=== PATIENT | female | born 1975 | race Hispanic/Latino ===

== ENCOUNTER 2017-08-27 00:13 | Emergency (ER) | payer OTHER, SELFPAY ==
[2017-08-27] MEDS ORDERED: TETRACAINE HCL 0.5% 2ML OPTH ONE (00:30)
[2017-08-27] MEDS ORDERED: FLUORESCEIN SODIUM 0.6 MG/WRAP ONE (00:31)
[2017-08-27] MEDS ORDERED: NA CHLORIDE 0.9% 2,000 ML ONE (00:35)
--- NOTE | 2017-08-27 01:34 | ER ---
Nurse's Notes [facility] Name: Paula Crockett Age: 42 yrs Sex: Female : 1975 Arrival Date: 08/27/2017 Time: 00:15 Bed 30 Private MD: Diagnosis: Ocular pain, right eye Presentation: 08/27 00:18 Presenting complaint: Patient states: " I was putting eye lashes and the blue thing got ao stock into my eye. Transition of care: patient was not received from another setting of care. Onset of symptoms was August 27, 2017 at 00:00. Initial Sepsis Screen: Does the patient meet any 2 criteria? No. Patient's initial sepsis screen is negative. Does the patient have a suspected source of infection? No. Patient's initial sepsis screen is negative. Care prior to arrival: None. 00:18 Method Of Arrival: Ambulatory ao 00:18 Acuity: LATRICIA 4 ao Triage Assessment: 00:30 General: Appears uncomfortable. rk2 00:30 General: Appears well groomed, well developed, well nourished, Behavior is calm, rk2 cooperative. Pain: Complains of pain in right eye. EENT: Eyes are tearing on iris of right eye Reports pain. Neuro: Level of Consciousness is alert, obeys commands, Oriented to person, place, time, situation. Respiratory: Airway is patent Respiratory effort is even, unlabored, Respiratory pattern is regular, symmetrical, agonal apnea. Derm: Skin is pink, warm \\T\\ dry. 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 - Social history:: Smoking status: Patient/guardian denies using tobacco, Patient uses alcohol, occasionally. Patient/guardian denies using street drugs. - Family history:: not pertinent. Screenin:30 Abuse screen: Denies threats or abuse. rk2 00:30 Nutritional screening: No deficits noted. Tuberculosis screening: No symptoms or risk rk2 factors identified. Fall Risk None identified. Assessment: 00:45 Reassessment: Irrigation of right eye with Jaylon lens, 2 liters of NS. Pt. tolerating rk2 well after tetracaine. 01:20 Reassessment: Eye irrigation completed... pt. resting in room with family \\T\\ bedside. rk2 Pt. appears to be in no distress; however, still has discomfort to right eye. Vital Signs: 00:19 BP 158 / 104; Pulse 81; Resp 14; Temp 99.4; Pulse Ox 98% on R/A; Weight 81.65 kg (R); ao Height 5 ft. 3 in. (160.02 cm) (R); Pain 4/10; 01:44 BP 169 / 93; Pulse 79; Resp 16; Pulse Ox 99% on R/A; rk2 00:19 Body Mass Index 31.89 (81.65 kg, 160.02 cm) ao ED Course: 00:15 Patient arrived in ED. ds1 00:19 Triage completed. ao 00:22 Patient has correct armband on for positive identification. Bed in low position. Call rk2 light in reach. 00:23 Arm band placed on right wrist. Patient placed in an exam room, on a stretcher, on ao pulse oximetry, Patient notified of wait time. 00:28 Mary العراقي RN is Primary Nurse. rk2 00:29 Ronnie Gaona MD is Attending Physician. ma2 01:45 No provider procedures requiring assistance completed. Patient did not have IV access rk2 during this emergency room visit. Administered Medications: No medications were administered Outcome: 01:33 Discharge ordered by . ma2 01:46 Discharged to home ambulatory. rk2 01:46 Condition: good 01:46 Discharge instructions given to patient, Prescriptions given X 1. 01:46 Patient left the ED. rk2 Signatures: Erkia López ds1 Keyon Bates RN RN ao Ronnie Gaona MD MD ma2 Mary العراقي RN RN rk2
--- NOTE | 2017-08-27 01:34 | EDPHYS ---
Physician Documentation [facility] Name: Paula Crockett Age: 42 yrs Sex: Female : 1975 Arrival Date: 08/27/2017 Time: 00:15 Bed 30 Private MD: ED Physician Ronnie Gaona HPI: 08/27 00:36 This 42 yrs old Female presents to ER via Ambulatory with complaints of ma2 Foreign Body In Eye. 00:36 The patient sustained drop of glue fell inside eye while trying to put lashes , caused ma2 by glue. Onset: The symptoms/episode began/occurred suddenly, 1 hour(s) ago. Duration: the symptoms are continuous. Associated signs and symptoms: Pertinent negatives: None. chills, dizziness, ear ache, fever, headache. Severity of symptoms: At their worst the symptoms were mild in the emergency department the symptoms have improved. 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 - Social history:: Smoking status: Patient/guardian denies using tobacco, Patient uses alcohol, occasionally. Patient/guardian denies using street drugs. - Family history:: not pertinent. ROS: 00:36 Eyes: Positive for foreign body sensation, Negative for acute changes, blurry vision, ma2 discharge, icterus, injury or acute deformity, itching, pain, photophobia, swelling, tearing, vision loss. 00:36 All other systems are negative. 01:35 Constitutional: Negative for fever, chills, and weight loss. ma2 Exam: 00:36 Visual Acuity: Visual acuity is within normal limits. ma2 00:36 Neck: Trachea midline, no thyromegaly or masses palpated, and no cervical lymphadenopathy. Supple, full range of motion without nuchal rigidity, or vertebral point tenderness. No Meningismus. Chest/axilla: Normal chest wall appearance and motion. Nontender with no deformity. No lesions are appreciated. Cardiovascular: Regular rate and rhythm with a normal S1 and S2. No gallops, murmurs, or rubs. Normal PMI, no JVD. No pulse deficits. Respiratory: Lungs have equal breath sounds bilaterally, clear to auscultation and percussion. No rales, rhonchi or wheezes noted. No increased work of breathing, no retractions or nasal flaring. 00:36 Eyes: Periorbital structures: appear normal, Extraocular movements: intact throughout, Conjunctiva: normal, Corneas: are normal, Sclera: no appreciated abnormality, Lids and lashes: appear normal, Examination of the other eye reveals no obvious gross abnormality, a slit lamp exam was employed for the exam, Intraocular pressure: Vital Signs: 00:19 BP 158 / 104; Pulse 81; Resp 14; Temp 99.4; Pulse Ox 98% on R/A; Weight 81.65 kg (R); ao Height 5 ft. 3 in. (160.02 cm) (R); Pain 4/10; 01:44 BP 169 / 93; Pulse 79; Resp 16; Pulse Ox 99% on R/A; rk2 00:19 Body Mass Index 31.89 (81.65 kg, 160.02 cm) ao MDM: 00:29 Patient medically screened. ma2 00:36 Differential diagnosis: Corneal abrasion of Corneal ulcer of Foreign body in ma2 01:31 Data reviewed: vital signs, nurses notes, old medical records, lab test result(s). ny2 Counseling: I had a detailed discussion with the patient and/or guardian regarding: the historical points, exam findings, and any diagnostic results supporting the discharge/admit diagnosis, the presence of at least one elevated blood pressure reading (>120/80) during this emergency department visit, the need for outpatient follow up. Response to treatment: the patient's symptoms have resolved after treatment, eye irrigated with glen lens, no foreign body seen on wood lamp . Administered Medications: No medications were administered Disposition: 08/27/17 01:33 Discharged to Home. Impression: Ocular pain, right eye. - Condition is Stable. - Prescriptions for Natural Tears (PF) - Apply to affected area 2 drop by OPHTHALMIC route 6 times per day for 8-10 days; 1 Container. - Medication Reconciliation Form, Thank You Letter, Antibiotic Education, Prescription Opioid Use form. - Follow up: Private Physician; When: Tomorrow; Reason: Continuance of care. - Problem is new. - Symptoms have improved. - Notes: see an eye doctor for eye exam in 2 days Signatures: Keyon Bates, RN RN Ronnie Johnson MD MD ma2 Mary العراقي RN RN rk2 Corrections: (The following items were deleted from the chart) 01:46 01:33 08/27/2017 01:33 Discharged to Home. Impression: Ocular pain, right eye. rk2 Condition is Stable. Forms are Medication Reconciliation Form, Thank You Letter, Antibiotic Education, Prescription Opioid Use. Follow up: Private Physician; When: Tomorrow; Reason: Continuance of care. Problem is new. Symptoms have improved. ma2
== END 2017-08-27 01:46 | disposition home or self-care (01) ==
LOC: ER 00:13
DX: H57.11 Ocular pain, right eye (principal); I10 Essential (primary) hypertension
CPT/HCPCS: 99283; J7030

== ENCOUNTER 2018-06-11 08:16 | Day surgery (SDC) | payer OTHER ==
--- OUTSIDE RECORDS SUMMARY | 2018-06-11 08:18 | XMS REPORT ---
:1975 [facility] Address [address] [place] [address] Dr. Hanson [address] [place] [id number] Care Team Providers Name Role Phone Unavailable Unavailable Unavailable Problems This patient has no known problems. Allergies, Adverse Reactions, Alerts This patient has no known allergies or adverse reactions. Medications This patient has no known medications.
--- OUTSIDE RECORDS SUMMARY | 2018-06-11 08:19 | XMS REPORT ---
:1975 Author Organization [employer] Care Team Providers Name Role Phone Guicho Estrada Provider Role Unavailable Allergies No Known Allergies Problems Problem Type Condition Code Onset Dates Condition Status Problem Constipation, unspecified K59.00 Active constipation type Problem Microalbuminuria R80.9 Active Problem Diverticulitis K57.92 Active Problem Uncontrolled diabetes mellitus type E11.65 Active 2 without complications, unspecified whether regulatory internship insulin use Problem HTN, goal below 130/80 I10 Active Problem Mixed hyperlipidemia E78.2 Active Problem Nonalcoholic fatty liver disease K76.0 Active Medications No Known Medications Results No Known Results Summary Purpose [employer] Submission
--- OUTSIDE RECORDS SUMMARY | 2018-06-11 08:19 | XMS REPORT ---
:1975 Author Organization [employer] Care Team Providers Name Role Phone SalcidoHong Provider Role Unavailable Allergies No Known Allergies Problems Problem Type Condition Code Onset Dates Condition Status Problem Mixed hyperlipidemia E78.2 Active Problem Nonalcoholic fatty liver disease K76.0 Active Problem Microalbuminuria R80.9 Active Problem Uncontrolled diabetes mellitus type E11.65 Active 2 without complications, unspecified whether penitentiary insulin use Problem HTN, goal below 130/80 I10 Active Medications No Known Medications Results No Known Results Summary Purpose [employer] Submission
--- OUTSIDE RECORDS SUMMARY | 2018-06-11 08:19 | XMS REPORT ---
:1975 Author Organization [employer] Care Team Providers Name Role Phone SalcidoHong Provider Role Unavailable Allergies No Known Allergies Problems Problem Type Condition Code Onset Dates Condition Status Problem Mixed hyperlipidemia E78.2 Active Problem Nonalcoholic fatty liver disease K76.0 Active Problem Microalbuminuria R80.9 Active Problem Uncontrolled diabetes mellitus type E11.65 Active 2 without complications, unspecified whether halfway insulin use Problem HTN, goal below 130/80 I10 Active Medications No Known Medications Results No Known Results Summary Purpose [employer] Submission
--- OUTSIDE RECORDS SUMMARY | 2018-06-11 08:19 | XMS REPORT ---
:1975 Author Organization [employer] Care Team Providers Name Role Phone SalcidoHong Provider Role Unavailable Allergies No Known Allergies Problems Problem Type Condition Code Onset Dates Condition Status Problem Mixed hyperlipidemia E78.2 Active Problem Nonalcoholic fatty liver disease K76.0 Active Problem Microalbuminuria R80.9 Active Problem Uncontrolled diabetes mellitus type E11.65 Active 2 without complications, unspecified whether senior living insulin use Problem HTN, goal below 130/80 I10 Active Medications No Known Medications Results No Known Results Summary Purpose [employer] Submission
--- OUTSIDE RECORDS SUMMARY | 2018-06-11 08:19 | XMS REPORT ---
:1975 Author Organization [employer] Care Team Providers Name Role Phone Omari Hong Provider Role Unavailable Allergies, Adverse Reactions, Alerts Substance Reaction Event Type N.K.D.A. 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 terminal insulin use Problem Uncontrolled diabetes mellitus type E11.65 Active 2 without complications, unspecified whether laborer marine terminal insulin use Problem HTN, goal below 130/80 I10 Active Medications Medication Code Code Instructions Start End Status Dosage System Date Date Zestoretic [facility] 94749873110 10-12.5 MG Nov 29, Active 1 tablet Orally Once a 2018 day Simvastatin NDC 74101547866 10 MG Orally Nov 29, Active 1 tablet Once a day 2018 in the evening Metformin HCl ND 18467251646 1000 MG Orally Nov 29, Active 1 tablet BID 2018 with a meal Results No Known Results Summary Purpose [employer] Submission
--- OUTSIDE RECORDS SUMMARY | 2018-06-11 08:19 | XMS REPORT ---
:1975 [facility] Team Providers Name Role Phone Omari Hong Provider Role Unavailable Allergies, Adverse Reactions, Alerts Substance Reaction Event Type N.K.D.A. Info Not Available Non Drug Allergy Problems Problem Type Condition Code Onset Dates Condition Status Assessment Constipation, unspecified K59.00 Active constipation type Assessment Uncontrolled diabetes mellitus type E11.65 Active 2 without complications, unspecified whether terminal clerk insulin use Assessment Left upper quadrant abdominal pain R10.12 Active of unknown etiology Assessment Microalbuminuria R80.9 Active Assessment Nonalcoholic fatty liver disease K76.0 Active Assessment Mixed hyperlipidemia E78.2 Active Assessment HTN, goal below 130/80 I10 Active Problem Microalbuminuria R80.9 Active Problem Mixed hyperlipidemia E78.2 Active Problem Constipation, unspecified K59.00 Active constipation type Problem HTN, goal below 130/80 I10 Active Problem Nonalcoholic fatty liver disease K76.0 Active Problem Uncontrolled diabetes mellitus type E11.65 Active 2 without complications, unspecified whether terminal clerk insulin use Medications Medication Code Code Instructions Start End Date Status Dosage System Date Luciazess [facility] 75657204890 290 mcg by mouth Mar 27June Active 1 capsule once daily at 2017 bedtime as needed Amitiza [facility] 78128865132 24 MCG Orally Mar 26July Active 1 capsule Twice a day 2017 with food Zestoretic [facility] 89596373536 10-12.5 MG Active 1 tablet Orally Once a day Tradjenta [facility] 25465710842 5 MG Orally Once Active 1 tablet a day Metformin HCl [facility] 91718731813 500 MG Orally Active 1 tablet twice a day with a meal Zestoretic [facility] 53855802678 10-12.5 MG Active 1 tablet Orally Once a day Simvastatin ND 64888420676 10 MG Orally Active 1 tablet Once a day in the evening Simvastatin [facility] 08921902767 10 MG Orally Active 1 tablet Once a day in the evening Tradjenta [facility] 80240364212 5 MG Orally Once Active 1 tablet a day Results No Known Results Summary Purpose [employer] Submission
--- OUTSIDE RECORDS SUMMARY | 2018-06-11 08:19 | XMS REPORT ---
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 Assessment Constipation, unspecified K59.00 Active constipation type Problem Microalbuminuria R80.9 Active Problem Mixed hyperlipidemia E78.2 Active Problem Constipation, unspecified K59.00 Active constipation type Problem HTN, goal below 130/80 I10 Active Problem Nonalcoholic fatty liver disease K76.0 Active Problem Uncontrolled diabetes mellitus type E11.65 Active 2 without complications, unspecified whether prison insulin use Medications Medication Code Code Instructions Start End Date Status Dosage System Date Metformin HCl [facility] 27234621732 500 MG Orally Active 1 tablet twice a day with a meal Zestoretic [facility] 89887061834 10-12.5 MG Active 1 tablet Orally Once a day Januvia ND 78333389656 100 MG Orally Inactive 1 tablet Once a day Tradjenta ND 13303585722 5 MG Orally Feb 26, Active 1 tablet Once a day 2017 Simvastatin ND 77410986145 10 MG Orally Active 1 tablet Once a day in the evening Amitiza [facility] 43545812804 24 MCG Orally Mar 26July Active 1 capsule Twice a day 2017 with food Results No Known Results Summary Purpose [employer] Submission
--- OUTSIDE RECORDS SUMMARY | 2018-06-11 08:19 | XMS REPORT ---
:1975 Author Organization [employer] Care Team Providers Name Role Phone SalcidoHong Provider Role Unavailable Allergies No Known Allergies Problems Problem Type Condition Code Onset Dates Condition Status Problem Mixed hyperlipidemia E78.2 Active Problem Nonalcoholic fatty liver disease K76.0 Active Problem Microalbuminuria R80.9 Active Problem Uncontrolled diabetes mellitus type E11.65 Active 2 without complications, unspecified whether jail insulin use Problem HTN, goal below 130/80 I10 Active Medications No Known Medications Results No Known Results Summary Purpose [employer] Submission
--- OUTSIDE RECORDS SUMMARY | 2018-06-11 08:19 | XMS REPORT ---
:1975 Author Organization [employer] Care Team Providers Name Role Phone Hong Salcido Provider Role Unavailable Allergies, Adverse Reactions, Alerts Substance Reaction Event Type N.K.D.A. Info Not Available Non Drug Allergy Problems Problem Type Condition Code Onset Dates Condition Status Assessment Acute cystitis without hematuria N30.00 Active Assessment Mixed hyperlipidemia E78.2 Active Assessment Nonalcoholic fatty liver disease K76.0 Active Problem Nonalcoholic fatty liver disease K76.0 Active Problem Uncontrolled diabetes mellitus type E11.65 Active 2 without complications, unspecified whether fdc insulin use Problem Mixed hyperlipidemia E78.2 Active Assessment Uncontrolled diabetes mellitus type E11.65 Active 2 without complications, unspecified whether fdc insulin use Assessment HTN, goal below 130/80 I10 Active Problem HTN, goal below 130/80 I10 Active Medications Medication Code Code Instructions Start End Status Dosage System Date Date Nitrofurantoin [facility] 42113500283 100 MG Orally November 08October Active 1 capsule Monohyd Macro every 12 hrs 2017, with food 2017 Results No Known Results Summary Purpose [employer] Submission
--- OUTSIDE RECORDS SUMMARY | 2018-06-11 08:19 | XMS REPORT ---
:1975 Author Organization [employer] Care Team Providers Name Role Phone SalcidoHong Provider Role Unavailable Allergies No Known Allergies Problems Problem Type Condition Code Onset Dates Condition Status Problem Mixed hyperlipidemia E78.2 Active Problem Nonalcoholic fatty liver disease K76.0 Active Problem Microalbuminuria R80.9 Active Problem Uncontrolled diabetes mellitus type E11.65 Active 2 without complications, unspecified whether care home insulin use Problem HTN, goal below 130/80 I10 Active Medications No Known Medications Results No Known Results Summary Purpose [employer] Submission
--- OUTSIDE RECORDS SUMMARY | 2018-06-11 08:19 | XMS REPORT ---
:1975 Author Organization [employer] Care Team Providers Name Role Phone SalcidoGuyh Provider Role Unavailable Allergies No Known Allergies Problems Problem Type Condition Code Onset Dates Condition Status Problem Microalbuminuria R80.9 Active Problem Mixed hyperlipidemia E78.2 Active Problem Constipation, unspecified K59.00 Active constipation type Problem HTN, goal below 130/80 I10 Active Problem Nonalcoholic fatty liver disease K76.0 Active Problem Uncontrolled diabetes mellitus type E11.65 Active 2 without complications, unspecified whether senior living insulin use Medications Medication Code System Code Instructions Start End Date Status Dosage Date Rachel [facility] 40477395561 290 mcg by mouth Mar 27June 25, Active 1 capsule once daily at 2017 2018 bedtime as needed Results No Known Results Summary Purpose [employer] Submission
--- OUTSIDE RECORDS SUMMARY | 2018-06-11 08:19 | XMS REPORT ---
:1975 Author Organization [employer] Care Team Providers Name Role Phone Hong Salcido Provider Role Unavailable Allergies No Known Allergies Problems Problem Type Condition Code Onset Dates Condition Status Problem Microalbuminuria R80.9 Active Problem Mixed hyperlipidemia E78.2 Active Problem Constipation, unspecified K59.00 Active constipation type Problem HTN, goal below 130/80 I10 Active Problem Nonalcoholic fatty liver disease K76.0 Active Problem Uncontrolled diabetes mellitus type E11.65 Active 2 without complications, unspecified whether senior living insulin use Medications No Known Medications Results No Known Results Summary Purpose [employer] Submission
[2018-06-11 08:42] LABS: Specific Gravity 1.025 (1.005-1.030)
[2018-06-11] MEDS ORDERED: Ringers Lactate 1,000 ML IV ONE (08:46)
[2018-06-11] MEDS ORDERED: PROPOFOL 200 MG/20 ML VIAL IV ONE ×2 (08:53)
[2018-06-11] MEDS ORDERED: LIDOCAINE 1% MPF 5 ML VIAL ONE ×2 (08:53)
--- NOTE | 2018-06-11 09:40 | ENDO RPT ---
[address], [address] COLONOSCOPY PROCEDURE REPORT EXAM DATE: 06/11/2018 PATIENT NAME: Paula Crockett MR #: [id number] BIRTHDATE: 1975 ATTENDING: Guicho Estrada DR STATUS: outpatient MARKETING SPECIALIST: Sophie Jansen RN, Christal Harrington RN, Ela Carranza, and Aime Carranza INDICATIONS: The patient is a 43 yr old Female here for a colonoscopy due to abdominal pain PROCEDURE PERFORMED: Colonoscopy with biopsy MEDICATIONS: Per Anesthesia. ESTIMATED BLOOD LOSS: None CONSENT: The patient understands the risks and benefits of the procedure and understands that these risks include, but are not limited to: sedation, allergic reaction, infection, perforation and/or bleeding. Alternative means of evaluation and treatment include, among others: physical exam, x-rays, and/or surgical intervention. The patient elects to proceed with this endoscopic procedure. DESCRIPTION OF PROCEDURE: During intra-op preparation period all mechanical medical equipment was checked for proper function. Hand hygiene and appropriate measures for infection prevention was taken. Procedure, possible complications, alternatives including, but not limited to possibility of bleeding, perforation, tear, infection, sepsis, need for surgery, need for blood transfusion, were explained to the patient. After the risks, benefits and alternatives of the procedure were thoroughly explained, Informed consent was verified, confirmed and timeout was successfully executed by the treatment team. The patient was placed in the left lateral position. A digital rectal exam was performed and revealed internal hemorrhoids. After appropriate level of anesthesia, the scope was passed. The EC-[id number] ([id number]) endoscope was introduced through the anus and advanced to the cecum, which was identified by both the appendix and ileocecal valve. The quality of the prep was poor. The instrument was then slowly withdrawn as the colon was fully examined. Scope withdrawal time was 10 minutes. COLON FINDINGS: A small smooth flat polyp with a mucous cap was found in the rectum. A polypectomy was performed with cold forceps. The resection was complete, the polyp tissue was completely retrieved and sent to histology. The colon mucosa was otherwise normal. Multiple random biopsies were performed. Retroflexed views revealed no abnormalities. The scope was then completely withdrawn from the patient and the procedure terminated. ADVERSE EVENTS: There were no complications. IMPRESSIONS: 1. Small flat polyp was found in the rectum; polypectomy was performed with cold forceps 2. The colon mucosa was otherwise normal; multiple random biopsies were performed RECOMMENDATIONS: 1. avoid NSAIDS for 2 weeks 2. fiber rich diet 3. await biopsy results 4. CT scan 5. hemorrhoidal hygiene 6. increase dietary water RECALL: for Colonoscopy, pending biopsy results. Guicho Estrada DR eSigned: Guicho Estrada DR 06/11/2018 9:40 AM cc: CPT CODES: ICD9 CODES: PATIENT NAME: Paula Crockett MR#: [id number]
== END 2018-06-11 10:15 | disposition home or self-care (01) ==
LOC: OR 08:16
PROVIDERS: ATTEND Surgery
PROC: 0DBL8ZX Excision of Transverse Colon, Via Natural or Artificial Opening Endoscopic, Diagnostic (ICD-10-PCS; 2018-06-11)
PROC: 0DBN8ZX Excision of Sigmoid Colon, Via Natural or Artificial Opening Endoscopic, Diagnostic (ICD-10-PCS; 2018-06-11)
PROC: 0DBP8ZX Excision of Rectum, Via Natural or Artificial Opening Endoscopic, Diagnostic (ICD-10-PCS; principal; 2018-06-11 09:15)
DX: R10.12 Left upper quadrant pain (principal); K62.1 Rectal polyp; K64.8 Other hemorrhoids; E11.9 Type 2 diabetes mellitus without complications; I10 Essential (primary) hypertension; E78.2 Mixed hyperlipidemia; Z80.3 Family history of malignant neoplasm of breast; Z83.3 Family history of diabetes mellitus; Z82.49 Family history of ischemic heart disease and other diseases of the circulatory system
CPT/HCPCS: 81025; 82962; 88305; J2704

== ENCOUNTER 2021-01-16 00:08 | Emergency (ER) | payer OTHER ==
[2021-01-16 00:51] LABS: Absolute Lymphocytes (CBC) 1.3 K/uL (0.7-4.9); Basophils % 0.9 % (0-1.3); Hematocrit 41.6 % (36.0-45.0); Lymphocytes % 17.9 % (15.3-44.8); MPV 8.2 fL (7.6-11.3); RBC Red Blood Cell Count 4.51 M/uL (3.86-4.86)
[2021-01-16 00:55] LABS: Protime INR 0.91
[2021-01-16] MEDS ORDERED: ONDANSETRON 4 MG/2 ML VIAL ONE (01:02)
[2021-01-16] MEDS ORDERED: NA CHLORIDE 0.9% 1,000 ML ONE (01:02)
[2021-01-16] MEDS ORDERED: FAMOTIDINE 20 MG/2 ML VIAL IV ONE (01:02)
[2021-01-16 01:22] LABS: ALT/SGPT 43 U/L (12-78); AST/SGOT 18 U/L (15-37); Albumin 3.9 g/dL (3.4-5.0); Alkaline Phosphatase 68 U/L (45-117); BUN Blood Urea Nitrogen 12 mg/dL (7-18); Bicarbonate 24 mmol/L (21-32); Bilirubin Direct < 0.1 mg/dL (0-0.2); Bilirubin Total 0.2 mg/dL (0.2-1.0); Glucose Level 201 mg/dL (74-106); Potassium 3.7 mmol/L (3.5-5.1); Protein, Total 7.9 g/dL (6.4-8.2); Sodium Level 139 mmol/L (136-145)
[2021-01-16 02:07] LABS: Urine Blood Negative (Negative); Urine Glucose 2+ (Negative); Urine Protein Negative (Negative)
[2021-01-16 02:26] LABS: Barbiturates NEGATIVE (NEGATIVE); Benzodiazepines NEGATIVE (NEGATIVE); Cocaine NEGATIVE (NEGATIVE); METHAMPHETAM NEGATIVE (NEGATIVE); Methadone NEGATIVE (NEGATIVE); Opiates NEGATIVE (NEGATIVE); Phencyclidine NEGATIVE (NEGATIVE); THC Cannibis NEGATIVE (NEGATIVE)
--- NOTE | 2021-01-16 02:52 | EDPHYS ---
Physician Documentation [facility] Name: Paula Crockett Age: 45 yrs Sex: Female : 1975 Arrival Date: 01/16/2021 Time: 00:22 Bed 20 Private MD: ED Physician Jorden Woodward HPI: 01/16 00:30 This 45 yrs old Female presents to ER via EMS with complaints of Alcohol cp Intoxication. 00:30 He was brought to the emergency department by EMS for reported bizarre behavior. cp Patient admits to consuming alcohol since about 5 this afternoon and being under increased stress. Patient is alert, calm and no complaints at this time. Historical: - Allergies: 00:29 No Known Allergies; sj1 - PMHx: 00:29 Diabetes - NIDDM; Hypertension; sj1 - Immunization history:: Client reports having NOT received the Covid vaccine. - Social history:: Smoking status: Patient denies any tobacco usage or history of. Patient uses alcohol, only on a social basis. ROS: 00:35 Constitutional: Negative for fever, poor PO intake. cp 00:35 Eyes: Negative for injury, pain, redness, and discharge. cp 00:35 Cardiovascular: Negative for chest pain. 00:35 Respiratory: Negative for cough, shortness of breath. 00:35 Abdomen/GI: Negative for abdominal pain, diarrhea, constipation, active vomiting. 00:35 Neuro: Negative for altered mental status, headache, seizure activity, syncope, weakness. 00:35 Psych: Negative for auditory hallucinations, visual hallucinations, homicidal ideation, suicide gesture, suicidal ideation. 00:35 All other systems are negative. Exam: 00:45 Constitutional: The patient appears in no acute distress, alert, awake, cp non-diaphoretic, non-toxic, well developed, well nourished. 00:45 Head/Face: Normocephalic, atraumatic. cp 00:45 Eyes: Periorbital structures: appear normal, Pupils: equal, round, and reactive to light and accomodation, Conjunctiva: normal, no exudate, no injection, Sclera: no appreciated abnormality, Lids and lashes: appear normal, bilaterally. 00:45 ENT: External ear(s): are unremarkable, Nose: is normal, Mouth: Lips: moist, Oral mucosa: moist, Posterior pharynx: Airway: no evidence of obstruction, patent. 00:45 Neck: ROM/movement: is normal, is supple, without pain, no range of motions limitations. 00:45 Chest/axilla: Inspection: normal, Palpation: is normal, no crepitus, no tenderness. 00:45 Cardiovascular: Rate: normal, Rhythm: regular. 00:45 Respiratory: the patient does not display signs of respiratory distress, Respirations: normal, no use of accessory muscles, no retractions, labored breathing, is not present, Breath sounds: are clear throughout, no decreased breath sounds, no stridor, no wheezing. 00:45 Abdomen/GI: Inspection: abdomen appears normal, Palpation: abdomen is soft and non-tender, in all quadrants. 00:45 Neuro: Orientation: to person, place \T\ time. Mentation: able to follow commands, Motor: moves all fours, strength is normal. 00:45 Psych: Behavior/mood is cooperative, Affect is calm, Patient has no thoughts/intents to harm self or others. Judgement / Insight is impaired. 00:55 ECG was reviewed by the Attending Physician. cp Vital Signs: 00:23 BP 115 / 76 LA Sitting (auto/reg); Pulse 70; Resp 16 S; Temp 97.0(O); Pulse Ox 94% on sj1 R/A; Weight 81.65 kg (R); Height 5 ft. 4 in. (162.56 cm) (R); Pain 0/10; 02:54 BP 108 / 70 LA Sitting (auto/reg); Pulse 70; Resp 13 S; Temp 97.6(O); Pulse Ox 94% on sj1 R/A; Pain 0/10; 00:23 Body Mass Index 30.90 (81.65 kg, 162.56 cm) sj1 MDM: 00:41 Patient medically screened. cp 02:50 Data reviewed: vital signs, nurses notes, lab test result(s), EKG, and as a result, I cp will discharge patient. 02:50 Differential diagnosis: drug withdrawal. acute psychotic break, depression, psychosis cp secondary to non-compliance. Counseling: I had a detailed discussion with the patient and/or guardian regarding: the historical points, exam findings, and any diagnostic results supporting the discharge/admit diagnosis, lab results, to return to the emergency department if symptoms worsen or persist or if there are any questions or concerns that arise at home. ED course: VSS. Daughter in room with patient and will continue to monitor at home. 01/16 00:24 Order name: Acetaminophen cp 01/16 00:24 Order name: Basic Metabolic Panel; Complete Time: 02:07 cp 01/16 02:07 Interpretation: Normal except: GLUC 201. cp 01/16 00:24 Order name: CBC with Diff; Complete Time: 02:07 cp 01/16 02:07 Interpretation: Normal except: ROB% 75.3. cp 01/16 00:24 Order name: ETOH Level; Complete Time: 02:07 cp 01/16 02:07 Interpretation: Abnormal: ETOH 181. cp 01/16 00:24 Order name: Hepatic Function; Complete Time: 02:07 cp 01/16 02:08 Interpretation: Normal except: GLOB 4.0; A/G 1.0. cp 01/16 00:24 Order name: PT-INR; Complete Time: 02:07 cp 01/16 00:24 Order name: Ptt, Activated; Complete Time: 02:07 cp 01/16 00:24 Order name: Salicylate; Complete Time: 02:07 cp 01/16 00:24 Order name: Urine Drug Screen; Complete Time: 02:50 cp 01/16 00:24 Order name: Acetaminophen Level; Complete Time: 02:07 EDMS 01/16 02:06 Order name: Urine Dipstick-Ancillary; Complete Time: 02:50 EDMS 01/16 00:24 Order name: EKG; Complete Time: 00:25 cp 01/16 00:24 Order name: EKG - Nurse/Tech; Complete Time: 00:44 cp 01/16 00:24 Order name: IV Saline Lock; Complete Time: 00:37 cp 01/16 00:24 Order name: Labs collected and sent; Complete Time: 00:37 cp 01/16 00:24 Order name: Urine Dipstick-Ancillary (obtain specimen); Complete Time: 02:56 cp EC:55 Rate is 69 beats/min. Rhythm is regular. NM interval is normal. QRS interval is normal. cp QT interval is normal. T waves are Inverted in leads III, aVR. Interpreted by me. Reviewed by me. Administered Medications: 00:44 Drug: NS 0.9% 1000 ml Route: IV; Rate: 1 bolus; Site: left antecubital; sj1 01:19 Follow up: IV Intake: 1000ml sj1 00:44 Drug: Zofran (Ondansetron) 4 mg Route: IVP; Site: left antecubital; sj1 01:17 Follow up: Response: No adverse reaction sj1 00:44 Drug: Pepcid (famotidine) 20 mg Route: IVP; Site: left antecubital; sj1 01:17 Follow up: Response: No adverse reaction sj1 Disposition: 07:01 Co-signature as Attending Physician, Jorden Woodward MD. [email or web address] Disposition Summary: 01/16/21 02:51 Discharge Ordered Location: Home cp Problem: new cp Symptoms: have improved cp Condition: Stable cp Diagnosis - Alcohol use, unspecified with intoxication cp Followup: cp - With: Private Physician - When: 1 - 2 days - Reason: Worsening of condition Discharge Instructions: - Discharge Summary Sheet cp - Alcohol Intoxication cp Forms: - Medication Reconciliation Form cp - Thank You Letter cp - Antibiotic Education cp - Prescription Opioid Use cp Signatures: Dispatcher [employer] EDMS Bruno Quiroz PA PA cp Jorden Woodward MD MD [email or web address] Carmen Garcia RN RN sj1 Corrections: (The following items were deleted from the chart) 02:56 00:24 Suicide Screening ([place]) ordered. cp sj1 16:26 16:25 This 45 yrs old Female presents to ER via EMS with complaints of Alcohol cp Intoxication. cp
--- NOTE | 2021-01-16 02:52 | ER ---
Nurse's Notes [facility] Name: Paula Crockett Age: 45 yrs Sex: Female : 1975 Arrival Date: 01/16/2021 Time: 00:22 Bed 20 Private MD: Diagnosis: Alcohol use, unspecified with intoxication Presentation: 01/16 00:23 Chief complaint: EMS states: brought in by EMS from [facility] for bizarre behavior. sj1 Per EMS pt was sleep, unarousable on scene. Pt awake, alert, and oriented upon arrival. States she have been under a lot of stress. Unknown amount of drinks tonight. BS 205 en route. c/o nausea. denies pain. GCS 15. Hx of HTN, DM. Coronavirus screen: Vaccine status: Patient reports being unvaccinated. Ebola Screen: Patient negative for fever greater than or equal to 101.5 degrees Fahrenheit, and additional compatible Ebola Virus Disease symptoms Patient denies exposure to infectious person. Patient denies travel to an Ebola-affected area in the 21 days before illness onset. Initial Sepsis Screen: Does the patient meet any 2 criteria? No. Patient's initial sepsis screen is negative. Does the patient have a suspected source of infection? No. Patient's initial sepsis screen is negative. Risk Assessment: Do you want to hurt yourself or someone else? Patient reports no desire to harm self or others. Onset of symptoms was January 16, 2021. 00:23 Method Of Arrival: EMS sj1 00:23 Acuity: LATRICIA 3 sj1 Triage Assessment: 00:29 General: Appears in no apparent distress. Behavior is calm, cooperative, Smells of sj1 alcohol. Pain: Denies pain. EENT: No deficits noted. Neuro: No deficits noted. Cardiovascular: No deficits noted. Respiratory: No deficits noted. GI: No deficits noted. : No deficits noted. Derm: No deficits noted. Musculoskeletal: No deficits noted. Historical: - Allergies: 00:29 No Known Allergies; sj1 - PMHx: 00:29 Diabetes - NIDDM; Hypertension; sj1 - Immunization history:: Client reports having NOT received the Covid vaccine. - Social history:: Smoking status: Patient denies any tobacco usage or history of. Patient uses alcohol, only on a social basis. Screenin:30 Abuse screen: Denies threats or abuse. Denies injuries from another. Nutritional sj1 screening: No deficits noted. Tuberculosis screening: No symptoms or risk factors identified. Fall Risk Gait- Impaired (20 pts.). Assessment: 01:30 Reassessment: pt denies SI today and denies prev SI thoughts. sj1 Vital Signs: 00:23 BP 115 / 76 LA Sitting (auto/reg); Pulse 70; Resp 16 S; Temp 97.0(O); Pulse Ox 94% on sj1 R/A; Weight 81.65 kg (R); Height 5 ft. 4 in. (162.56 cm) (R); Pain 0/10; 02:54 BP 108 / 70 LA Sitting (auto/reg); Pulse 70; Resp 13 S; Temp 97.6(O); Pulse Ox 94% on sj1 R/A; Pain 0/10; 00:23 Body Mass Index 30.90 (81.65 kg, 162.56 cm) sj1 ED Course: 00:22 Patient arrived in ED. bp1 00:23 Bruno Quiroz PA is PHCP. cp 00:23 Jorden Woodward MD is Attending Physician. cp 00:29 Triage completed. sj1 00:29 Arm band placed on right wrist. sj1 00:30 Patient has correct armband on for positive identification. Bed in low position. Side sj1 rails up X 1. Adult w/ patient. 00:30 No provider procedures requiring assistance completed. Maintain EMS IV. Site clean \T\ sj1 dry. Flushed. 00:44 Acetaminophen Sent. sj1 02:54 IV discontinued, intact, bleeding controlled, No redness/swelling at site. sj1 Administered Medications: 00:44 Drug: NS 0.9% 1000 ml Route: IV; Rate: 1 bolus; Site: left antecubital; sj1 01:19 Follow up: IV Intake: 1000ml sj1 00:44 Drug: Zofran (Ondansetron) 4 mg Route: IVP; Site: left antecubital; sj1 01:17 Follow up: Response: No adverse reaction sj1 00:44 Drug: Pepcid (famotidine) 20 mg Route: IVP; Site: left antecubital; sj1 01:17 Follow up: Response: No adverse reaction sj1 Intake: 01:19 IV: 1000ml; Total: 1000ml. sj1 Outcome: 02:51 Discharge ordered by . cp 02:53 Discharged to home ambulatory, with family. sj1 02:53 Condition: stable 02:53 Discharge instructions given to patient, Instructed on discharge instructions, follow up and referral plans. Demonstrated understanding of instructions, follow-up care. 03:06 Patient left the ED. sj1 Signatures: Bruno Quiroz PA PA cp [place], Brittany bp1 Johnson, Sade, RN RN sj1
[2021-01-16 03:13] VITALS: O2SAT 94
[2021-01-16 03:15] VITALS: BP 108/70; TEMP 97.6
--- NOTE | 2021-01-16 11:13 | EKG ---
Test Date: 2021-01-16 Test Time: 00:48:11 Flower Cheniller: MEASUREMENT RESULTS: Intervals: Rate: 69 HI: 174 QRSD: 82 QT: 456 QTc: 488 [place]: P: 32 HI: 174 QRS: 17 T: 8 INTERPRETIVE STATEMENTS: Normal sinus rhythm Possible Anterior infarct, age undetermined Abnormal ECG No previous ECG available for comparison Electronically Signed On 01-16-21 11:12:58 CDT by Tommy Barragan
== END 2021-01-16 03:06 | disposition home or self-care (01) ==
LOC: ER 00:08
DX: F10.929 Alcohol use, unspecified with intoxication, unspecified (principal); I10 Essential (primary) hypertension
CPT/HCPCS: 93005; 85025; 80048; 36415; 80320; 80329 ×2; 85610; 80076; 85730; 81003; 80307; 96375; 96374; 99283; J7030; J2405